=== PATIENT | female | born 1980 | race Caucasian/White ===

== ENCOUNTER 2016-12-20 08:27 | Emergency (ER) | payer SELFPAY | END 2016-12-20 11:30 | disposition home or self-care (01) | LOC: ER1 08:27 | DX: S93.409A Sprain of unspecified ligament of unspecified ankle, initial encounter (principal); S93.609A Unspecified sprain of unspecified foot, initial encounter; S90.02XA Contusion of left ankle, initial encounter; S90.01XA Contusion of right ankle, initial encounter; S90.31XA Contusion of right foot, initial encounter; S70.312A Abrasion, left thigh, initial encounter; F17.200 Nicotine dependence, unspecified, uncomplicated; Z88.0 Allergy status to penicillin; W18.09XA Striking against other object with subsequent fall, initial encounter; Y92.009 Unspecified place in unspecified non-institutional (private) residence as the place of occurrence of the external cause | CPT/HCPCS: 73610; 73630; 99283 ==

== ENCOUNTER 2017-01-19 20:07 | Emergency (ER) | payer SELFPAY | END 2017-01-19 21:30 | disposition left against medical advice (07) | LOC: ER1 20:07 | DX: Z53.21 Procedure and treatment not carried out due to patient leaving prior to being seen by health care provider (principal) ==

== ENCOUNTER 2021-06-15 14:14 | Emergency (ER) | payer OTHER | END 2021-06-15 14:50 | disposition home or self-care (01) | LOC: ER1 14:14 | DX: S69.91XA Unspecified injury of right wrist, hand and finger(s), initial encounter (principal); X58.XXXA Exposure to other specified factors, initial encounter | CPT/HCPCS: 99281 ==